=== PATIENT | female | born 1995 ===

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

== ENCOUNTER 2017-04-12 18:58 | Emergency (ER) | payer OTHER ==
[2017-04-12 18:58] VITALS: BMI 21.2
[2017-04-12 21:05] VITALS: O2SAT 100
[2017-04-12 22:03] LABS: SQUAMOUS EPITHIAL 4 /hpf (0-5); URINE BILIRUBIN NEGATIVE (NEGATIVE); URINE BLOOD NEGATIVE (NEGATIVE); URINE CLARITY Clear (Clear); URINE COLOR Yellow (YELLOW); URINE GLUCOSE (UA) NORMAL (Normal); URINE LEUKOCYTE ESTERASE NEG Leu/uL (Negative); URINE NITRATE NEGATIVE (NEGATIVE); URINE PROTEIN NEGATIVE (NEGATIVE); URINE UROBILINOGEN NORMAL mg/dL (0.2-1.0)
--- NOTE | 2017-04-13 00:33 | C.PDOC ---
History Of Present Illness 21 y/o female with c/o of mid suprapubic pain at onset of her menses on 04/09. Pt did not take any meds for the pain. She denies urinary symptoms, nausea, vomiting or diarrhea, no fever or URI sx Time Seen by Provider: 04/12/17 21:08 Chief Complaint (Nursing): Abdominal Pain History Per: Patient History/Exam Limitations: no limitations Current Symptoms Are (Timing): Still Present Severity: Mild Pain Scale Rating Of: 4 Location Of Pain/Discomfort: LLQ, Suprapubic Radiation Of Pain To:: None Associated Symptoms: denies: Fever, Nausea, Vomiting, Back Pain, Chest Pain, Constipation, Urinary Symptoms Past Medical History Vital Signs: Last Vital Signs Temp 97.7 F 04/13/17 00:43 Pulse 90 04/13/17 00:43 Resp 20 04/13/17 00:43 BP 136/78 04/13/17 00:43 Pulse Ox 100 04/13/17 00:43 - Medical History PMH: No Chronic Diseases Denies: Chronic Kidney Disease Family History: States: Unknown Family Hx - Social History Hx Alcohol Use: No Hx Substance Use: No Review Of Systems Gastrointestinal: Positive for: Abdominal Pain (suprapubic). Negative for: Nausea, Vomiting, Diarrhea Genitourinary: Positive for: Pelvic Pain. Negative for: Dysuria, Vaginal Discharge Physical Exam - Physical Exam Appears: Well, Non-toxic Skin: Normal Color Eye(s): bilateral: Normal Inspection, PERRL Oral Mucosa: Moist Throat: Normal, No Erythema Neck: Normal Chest: Symmetrical, No Tenderness Cardiovascular: Rhythm Regular Respiratory: Normal Breath Sounds, Accessory Muscle Use, No Wheezing Gastrointestinal/Abdominal: Normal Exam, Soft, Tenderness (mid suprapubic tenderness, no RLQ tenderness,), No Distention, No Guarding, No Other (mc rajan tenderness, no RUQ tenderness) Back: Normal Inspection, No CVA Tenderness Pelvic: Normal External Exam, Normal Bimanual Exam, No Vaginal Bleeding, No Vaginal Discharge, No Cervical Motion Tenderness, No Adnexal Tenderness, No Mass ED Course And Treatment O2 Sat by Pulse Oximetry: 100 Pulse Ox Interpretation: Normal Progress Note: UA and UCG wnl. Pt laying comfortably onstrrtcher in NAD, VSS. Pt reports feeling better, and will follow up with medical / bottom steep [facility] clinic in 2 days Reevaluation Time: 04:14 Reassessment Condition: Improved Disposition Counseled Patient/Family Regarding: Diagnosis, Need For Followup, Rx Given - Disposition Referrals: [facility] [Outside] Disposition: HOME/ ROUTINE Disposition Time: 00:30 Condition: STABLE Additional Instructions: Take motrin for pain Return to ER if worse (REGRESA SI MUCHO DOLOR ABDOMINAL JULIANA AN LA PARTE DERECHA A BAJO, SI VOMITO, FIEBRE O PEOR Prescriptions: Ibuprofen [Motrin] 600 mg PO Q6H #20 tab Instructions: Acute Pelvic Pain (DC) Forms: [employer] (Indonesian) Print Language: SAMMARINESE - Clinical Impression Clinical Impression: Pelvic pain
[2017-04-13 00:45] VITALS: BP 136/78; PULSE 90; RESP 20; TEMP 97.7
== END 2017-04-13 00:45 | disposition home or self-care (01) ==
LOC: C.ER 18:58
DX: R10.2 Pelvic and perineal pain (principal)

== ENCOUNTER 2018-04-17 17:47 | Emergency (ER) | payer SELFPAY ==
[2018-04-17 17:48] VITALS: BMI 21.2
[2018-04-17 17:59] VITALS: RESP 18; O2SAT 100
[2018-04-17] MEDS ORDERED: Sodium Chloride 0.9% 1,000 ML IV ONE (18:30)
[2018-04-17] MEDS ORDERED: Sodium Chloride 0.9% 1,000 ML ONE (18:46)
--- NOTE | 2018-04-17 19:27 | C.PDOC ---
History Of Present Illness 22 year old female presents to the emergency department with complaints of 3 months of epigastric abdominal pain. Patient denies nausea, vomiting, diarrhea, fever, chills, urinary symptoms, vaginal bleeding and vaginal discharge. She states that she symptoms have gotten worse, which is why she is here today. Time Seen by Provider: 04/17/18 18:13 Chief Complaint (Nursing): Abdominal Pain History Per: Patient History/Exam Limitations: no limitations Onset/Duration Of Symptoms: Other (3 months) Current Symptoms Are (Timing): Still Present Location Of Pain/Discomfort: Epigastric Quality Of Discomfort: "Pain" Associated Symptoms: denies: Fever, Chills, Nausea, Vomiting, Diarrhea, Urinary Symptoms Past Medical History Reviewed: Historical Data, Nursing Documentation, Vital Signs Vital Signs: Last Vital Signs Temp 99 F 04/17/18 17:55 Pulse 76 04/17/18 17:55 Resp 18 04/17/18 17:55 BP 119/74 04/17/18 17:55 Pulse Ox 100 04/17/18 17:55 - Medical History PMH: No Chronic Diseases Denies: Chronic Kidney Disease Surgical History: No Surg Hx Family History: States: No Known Family Hx - Social History Hx Alcohol Use: No Hx Substance Use: No - Immunization History Hx Tetanus Toxoid Vaccination: No Hx Influenza Vaccination: No Hx Pneumococcal Vaccination: No Review Of Systems Except As Marked, All Systems Reviewed And Found Negative. Gastrointestinal: Positive for: Abdominal Pain Physical Exam - Physical Exam Appears: Non-toxic, No Acute Distress Skin: Normal Color, Warm, Dry Head: Atraumatic, Normacephalic Eye(s): bilateral: Normal Inspection, PERRL, EOMI Nose: Normal Oral Mucosa: Moist Neck: Normal, Supple Chest: Symmetrical, No Tenderness Cardiovascular: Rhythm Regular, No Murmur Respiratory: Normal Breath Sounds, No Rales, No Rhonchi, No Wheezing Gastrointestinal/Abdominal: Soft, Tenderness (epigastric), No Guarding, No Rebound Neurological/Psych: Oriented x3, Normal Speech, Normal Cognition ED Course And Treatment - Laboratory Results Result Diagrams: 04/17/18 19:27 04/17/18 19:27 O2 Sat by Pulse Oximetry: 100 (RA) Pulse Ox Interpretation: Normal Medical Decision Making Medical Decision Making: Plan: CMP Lipase CBC XR Obstructive Series Pepcid 20mg IVP NaCl IV Fluids Toradol 30mg IVP Zofran 4mg IVP Urine Culture Urinalysis Assessment: Abdominal Pain 2001- patient states improvement. no more pain. will discharge home to follow up with pmd within 2 days obs. series - preliminary read as nsgp Disposition Counseled Patient/Family Regarding: Studies Performed, Diagnosis, Need For Followup, Rx Given - Disposition Referrals: [facility] [Outside] Disposition: HOME/ ROUTINE Disposition Time: 20:03 Condition: IMPROVED Additional Instructions: follow up with medical clinic within 2 days call to make an appointment take medications as prescribed return to ER if symptoms worsens or progress Prescriptions: Famotidine [Pepcid] 20 mg PO BID #20 tab Ondansetron ODT [Zofran ODT] 4 mg PO TID PRN #12 odt PRN Reason: Nausea/Vomiting Instructions: Acute Abdomen (Belly Pain), Adult (DC) Forms: Gen Discharge Inst Haitian, [employer] (Haitian) Print Language: CROATIAN - Clinical Impression Clinical Impression: Abdominal pain - Scribe Statement The provider has reviewed the documentation as recorded by the Scribe (Anthony Storm) Provider Attestation: All medical record entries made by the Scribe were at my direction and personally dictated by me. I have reviewed the chart and agree that the record accurately reflects my personal performance of the history, physical exam, medical decision making, and the department course for this patient. I have also personally directed, reviewed, and agree with the discharge instructions and disposition.
[2018-04-17 19:30] LABS: BASO % 0.5 % (0.0-2.0); EOS # 0.1 K/uL (0.0-0.7); EOS % 1.4 % (0.0-4.0); HEMOGLOBIN 13.8 g/dL (11.0-16.0); LYMPH # 3.3 K/uL (1.0-4.3); MEAN CELL VOLUME 82.9 fL (81.0-99.0); MEAN CORPUSCULAR HEMOGLOBIN 27.5 pg (27.0-31.0); MEAN CORPUSCULAR HGB CONC 33.2 g/dL (33.0-37.0); MEAN PLATELET VOLUME 9.1 fL (7.2-11.7); MONO # 0.5 K/uL (0.0-0.8); MONO % 5.7 % (0.0-10.0); NEUT # 4.1 K/uL (1.8-7.0); NEUT % 51.4 % (50.0-75.0); NRBC % 0.1 % (0.0-2.0); RBC 5.01 Mil/uL (3.80-5.20); RED CELL DISTRIBUTION WIDTH 12.6 % (11.5-14.5)
[2018-04-17 19:40] LABS: SQUAMOUS EPITHIAL < 1 /hpf (0-5); URINE BACTERIA RARE (<OCC); URINE BILIRUBIN NEGATIVE (NEGATIVE); URINE BLOOD NEGATIVE (NEGATIVE); URINE CLARITY Clear (Clear); URINE COLOR Yellow (YELLOW); URINE GLUCOSE (UA) NORMAL (Normal); URINE LEUKOCYTE ESTERASE NEG Leu/uL (Negative); URINE PROTEIN NEGATIVE (NEGATIVE); URINE UROBILINOGEN NORMAL mg/dL (0.2-1.0)
[2018-04-17 19:42] LABS: ALB/GLOB RATIO 1.3 (1.0-2.1); ALBUMIN 4.7 g/dL (3.5-5.0); ALT/SGPT 20 U/L (9-52); AST/SGOT 26 U/L (14-36); BLOOD UREA NITROGEN 8 mg/dL (7-17); CALCIUM 9.2 mg/dl (8.6-10.4); GFR NON-AFRICAN AMERICAN > 60; LIPASE 79 U/L (23-300)
[2018-04-17 20:16] VITALS: BP 115/72; PULSE 74; TEMP 98.5
--- NOTE | 2018-04-18 09:56 | RAD ---
Date of service: 04/17/2018 PROCEDURE: Radiographs of the chest and abdomen (obstructive series) HISTORY: abd pain COMPARISON: No prior. TECHNIQUE: AP radiograph of the chest, with upright and supine radiographs of the abdomen. FINDINGS: CHEST: Lungs: Clear. Cardiovascular: Normal size heart. No pulmonary vascular congestion. No aortic atherosclerotic calcification present Pleura: No pleural fluid. No pneumothorax. Other findings: Note made of multiple tiny radiopaque densities seen overlying the lower thorax and upper abdomen felt to represent clothing artifact. ABDOMEN AND PELVIS: Bowel: Unremarkable bowel gas pattern. No evidence of mechanical obstruction. Free air: None. Bones: Unremarkable. Other findings: None. IMPRESSION: Unremarkable radiographs of chest and abdomen. No evidence of mechanical bowel obstruction.
== END 2018-04-17 20:15 | disposition home or self-care (01) ==
LOC: C.ER 17:47
DX: R10.13 Epigastric pain (principal)
CPT/HCPCS: 74022; 80053; 81001; 81025; 83690; 85025; 87086; 96361; 96374; 96375; 99284; J1885; J2405; J7030

== ENCOUNTER 2018-05-09 15:37 | Emergency (ER) | payer OTHER ==
[2018-05-09 15:41] VITALS: BMI 24.2
[2018-05-09 16:08] VITALS: RESP 18
[2018-05-09 16:52] LABS: HCG,QUALITATIVE URINE NEGATIVE (NEGATIVE)
[2018-05-09 16:54] LABS: SQUAMOUS EPITHIAL 1 /hpf (0-5); URINE BILIRUBIN NEGATIVE (NEGATIVE); URINE BLOOD NEGATIVE (NEGATIVE); URINE CLARITY Clear (Clear); URINE COLOR Yellow (YELLOW); URINE GLUCOSE (UA) NORMAL (Normal); URINE LEUKOCYTE ESTERASE NEG Leu/uL (Negative); URINE PROTEIN 1+ mg/dL (NEGATIVE); URINE UROBILINOGEN NORMAL mg/dL (0.2-1.0)
--- NOTE | 2018-05-09 17:18 | C.PDOC ---
History Of Present Illness 22 y/o female presents to the ER complaining of abdominal pain and intermittent bloating which has been present for the past 3 months. Patient was evaluated for similar complaint in [place] [facility] few weeks ago. However, patient states that she did not really have a clear diagnosis and she still has the symptoms. She notes that she has pain mainly in the left side and pelvic region. Denies having fever,chills, nausea,vomiting, dysuria, and hematuria. Time Seen by Provider: 05/09/18 16:45 Chief Complaint (Nursing): Abdominal Pain History Per: Patient History/Exam Limitations: no limitations Onset/Duration Of Symptoms: Days Current Symptoms Are (Timing): Still Present Severity: Moderate Past Medical History Reviewed: Historical Data, Nursing Documentation, Vital Signs Vital Signs: Last Vital Signs Temp 98.4 F 05/09/18 15:41 Pulse 88 05/09/18 15:41 Resp 18 05/09/18 15:41 BP 145/80 05/09/18 15:41 Pulse Ox 98 05/09/18 15:41 - Medical History PMH: No Chronic Diseases Denies: Chronic Kidney Disease Other Surgeries: Hx of surgeries Family History: States: No Known Family Hx - Social History Hx Alcohol Use: No Hx Substance Use: No - Immunization History Hx Tetanus Toxoid Vaccination: No Hx Influenza Vaccination: No Hx Pneumococcal Vaccination: No Review Of Systems Except As Marked, All Systems Reviewed And Found Negative. Constitutional: Negative for: Fever, Chills Gastrointestinal: Positive for: Abdominal Pain. Negative for: Nausea, Vomiting Genitourinary: Negative for: Dysuria, Hematuria Physical Exam - Physical Exam Appears: Non-toxic, No Acute Distress Skin: Normal Color, Warm, Dry Head: Atraumatic, Normacephalic Eye(s): bilateral: Normal Inspection Nose: Normal Oral Mucosa: Moist Neck: Supple Chest: Symmetrical Cardiovascular: Rhythm Regular Respiratory: Normal Breath Sounds, No Rales, No Rhonchi, No Wheezing Gastrointestinal/Abdominal: Normal Exam, Soft, No Tenderness, No Guarding, No Rebound Neurological/Psych: Oriented x3, Normal Speech ED Course And Treatment - Laboratory Results Lab Results: Urine Color Yellow (YELLOW) 05/09/18 16:43 Urine Clarity Clear (Clear) 05/09/18 16:43 Urine pH 8.0 (5.0-8.0) 05/09/18 16:43 Ur Specific [place] 1.024 (1.003-1.030) 05/09/18 16:43 Urine Protein 1+ mg/dL (NEGATIVE) H 05/09/18 16:43 Urine Glucose (UA) Normal mg/dL (Normal) 05/09/18 16:43 Urine Ketones Negative mg/dL (NEGATIVE) 05/09/18 16:43 Urine Blood Negative (NEGATIVE) 05/09/18 16:43 Urine Nitrate Negative (NEGATIVE) 05/09/18 16:43 Urine Bilirubin Negative (NEGATIVE) 05/09/18 16:43 Urine Urobilinogen Normal mg/dL (0.2-1.0) 05/09/18 16:43 Ur Leukocyte Esterase Neg Sofie/uL (Negative) 05/09/18 16:43 Urine WBC (Auto) < 1 /hpf (0-5) 05/09/18 16:43 Ur Squamous Epith Cells 1 /hpf (0-5) 05/09/18 16:43 Urine HCG, Qual Negative (NEGATIVE) 05/09/18 16:43 Urine HCG, Qual Negative (NEGATIVE) 05/09/18 16:43 O2 Sat by Pulse Oximetry: 98 (RA) Pulse Ox Interpretation: Normal Medical Decision Making Medical Decision Making: Plan: --UA Update: Patient had X-ray Obs series on her previous ER visit which showed retained stool. Patient has been discharged with prescriptions for Miralax and Benefiber. Disposition Counseled Patient/Family Regarding: Diagnosis, Need For Followup, Rx Given - Disposition Referrals: [facility] [Outside] Disposition: HOME/ ROUTINE Disposition Time: 17:16 Condition: STABLE Prescriptions: Polyethylene Glycol 3350 [Miralax] 1 packet PO HS #30 powd.pack Wheat Dextrin [Benefiber] 1 each PO DAILY #30 powd.pack Instructions: Constipation, Adult (DC) Forms: Gen Discharge Inst Armenian, [employer] (Armenian), Work Excuse - POA Present On Arrival: None - Clinical Impression Clinical Impression: Constipation - Scribe Statement The provider has reviewed the documentation as recorded by the Boris Wilson Provider Attestation: All medical record entries made by the Scribe were at my direction and personally dictated by me. I have reviewed the chart and agree that the record accurately reflects my personal performance of the history, physical exam, medical decision making, and the department course for this patient. I have also personally directed, reviewed, and agree with the discharge instructions and disposition.
[2018-05-09 17:28] VITALS: BP 111/73; PULSE 94; TEMP 98.1
[2018-05-09 18:41] VITALS: O2SAT 98
== END 2018-05-09 17:28 | disposition home or self-care (01) ==
LOC: C.ER 15:37
DX: K59.00 Constipation, unspecified (principal)

== ENCOUNTER 2018-06-12 09:44 | Emergency (ER) | payer OTHER ==
[2018-06-12 09:53] VITALS: BMI 22.3
[2018-06-12 10:27] LABS: HCG,QUALITATIVE URINE NEGATIVE (NEGATIVE)
[2018-06-12 10:29] LABS: SQUAMOUS EPITHIAL 2 /hpf (0-5); URINE BACTERIA RARE (<OCC); URINE BILIRUBIN NEGATIVE (NEGATIVE); URINE BLOOD 1+ (NEGATIVE); URINE CLARITY Hazy (Clear); URINE COLOR Yellow (YELLOW); URINE GLUCOSE (UA) NORMAL (Normal); URINE LEUKOCYTE ESTERASE NEG Leu/uL (Negative); URINE PROTEIN NEGATIVE (NEGATIVE); URINE UROBILINOGEN NORMAL mg/dL (0.2-1.0)
--- NOTE | 2018-06-12 10:54 | RAD ---
Date of service: 06/12/2018 HISTORY: Shortness of breath COMPARISON: No prior. TECHNIQUE: Chest PA and lateral FINDINGS: LINES AND TUBES: None. LUNG AND PLEURA: The lungs are well inflated and clear. No pleural effusion or pneumothorax. HEART AND MEDIASTINUM: The heart is not enlarged. No aortic atherosclerotic calcifications present. The hilar and mediastinal contours are within normal limits. SKELETAL STRUCTURES: The bony structures are within normal limits for the patient's age. VISUALIZED UPPER ABDOMEN: Normal. OTHER FINDINGS: None. IMPRESSION: No active pulmonary disease.
--- NOTE | 2018-06-12 10:57 | C.PDOC ---
Time Seen by Provider: 06/12/18 10:06 Chief Complaint (Nursing): Dizziness/Lightheaded Past Medical History Vital Signs: Last Vital Signs Temp 99 F 06/12/18 09:53 Pulse 86 06/12/18 09:53 Resp 18 06/12/18 09:53 BP 130/78 06/12/18 09:53 Pulse Ox 100 06/12/18 09:53 - Medical History PMH: Denies: Chronic Kidney Disease Family History: States: Unknown Family Hx - Social History Hx Alcohol Use: No Hx Substance Use: No - Immunization History Hx Tetanus Toxoid Vaccination: No Hx Influenza Vaccination: No Hx Pneumococcal Vaccination: No ED Course And Treatment - Laboratory Results Lab Results: Urine Color Yellow (YELLOW) 06/12/18 10:17 Urine Clarity Hazy (Clear) 06/12/18 10:17 Urine pH 5.0 (5.0-8.0) 06/12/18 10:17 Ur Specific [place] 1.026 (1.003-1.030) 06/12/18 10:17 Urine Protein Negative mg/dL (NEGATIVE) 06/12/18 10:17 Urine Glucose (UA) Normal mg/dL (Normal) 06/12/18 10:17 Urine Ketones Negative mg/dL (NEGATIVE) 06/12/18 10:17 Urine Blood 1+ (NEGATIVE) H 06/12/18 10:17 Urine Nitrate Negative (NEGATIVE) 06/12/18 10:17 Urine Bilirubin Negative (NEGATIVE) 06/12/18 10:17 Urine Urobilinogen Normal mg/dL (0.2-1.0) 06/12/18 10:17 Ur Leukocyte Esterase Neg Sofie/uL (Negative) 06/12/18 10:17 Urine WBC (Auto) 1 /hpf (0-5) 06/12/18 10:17 Urine RBC (Auto) 8 /hpf (0-3) H 06/12/18 10:17 Ur Squamous Epith Cells 2 /hpf (0-5) 06/12/18 10:17 Urine Bacteria Rare (<OCC) 06/12/18 10:17 Urine HCG, Qual Negative (NEGATIVE) 06/12/18 10:17 Urine HCG, Qual Negative (NEGATIVE) 06/12/18 10:17 O2 Sat by Pulse Oximetry: 100 Disposition - Disposition
--- NOTE | 2018-06-12 11:01 | C.PDOC ---
History Of Present Illness 22 year old female (not on control), presents to the emergency department with complaints of shortness of breath, palpitations, and lightheadedness since this morning after drinking coffee. 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 Patient states that yesterday's episode was not as intense. Patient denies smoking, cough, recent travel, immobilization, no leg swelling/pain. Time Seen by Provider: 06/12/18 10:06 Chief Complaint (Nursing): Dizziness/Lightheaded History Per: Patient History/Exam Limitations: no limitations Onset/Duration Of Symptoms: Days (1) Current Symptoms Are (Timing): Better Associated Symptoms: Heart Racing, Light-headedness, Other (shortness of breath ). denies: Leg/Calf Pain, Ankle/Leg Swelling Recent travel outside of the [place]: No Past Medical History Reviewed: Historical Data, Nursing Documentation, Vital Signs Vital Signs: Last Vital Signs Temp 99 F 06/12/18 09:53 Pulse 86 06/12/18 09:53 Resp 18 06/12/18 09:53 BP 130/78 06/12/18 09:53 Pulse Ox 100 06/12/18 09:53 - Medical History PMH: No Chronic Diseases Denies: Chronic Kidney Disease Surgical History: No Surg Hx Family History: States: No Known Family Hx - Social History Hx Alcohol Use: No Hx Substance Use: No - Immunization History Hx Tetanus Toxoid Vaccination: No Hx Influenza Vaccination: No Hx Pneumococcal Vaccination: No Review Of Systems Constitutional: Negative for: Fever, Chills Cardiovascular: Positive for: Palpitations, Light Headedness Respiratory: Positive for: Shortness of Breath Musculoskeletal: Negative for: Leg Pain Physical Exam - Physical Exam Appears: Non-toxic, No Acute Distress Skin: Normal Color, Warm, Dry, No Rash Head: Atraumatic, Normacephalic Eye(s): bilateral: Normal Inspection, PERRL, EOMI Nose: Normal Oral Mucosa: Moist Neck: Normal, Supple Chest: Symmetrical, No Tenderness Cardiovascular: Rhythm Regular (tachycardic), No Murmur Respiratory: Normal Breath Sounds, No Rales, No Rhonchi, No Wheezing Gastrointestinal/Abdominal: Soft, No Tenderness, No Guarding, No Rebound Extremity: Normal ROM, No Pedal Edema, No Calf Tenderness, No Swelling Neurological/Psych: Oriented x3, Normal Speech, Normal Cognition, Normal Cranial Nerves, Normal Motor, Normal Sensation ED Course And Treatment - Laboratory Results Result Diagrams: 06/12/18 11:05 06/12/18 11:05 Lab Results: Urine Color Yellow (YELLOW) 06/12/18 10:17 Urine Clarity Hazy (Clear) 06/12/18 10:17 Urine pH 5.0 (5.0-8.0) 06/12/18 10:17 Ur Specific [place] 1.026 (1.003-1.030) 06/12/18 10:17 Urine Protein Negative mg/dL (NEGATIVE) 06/12/18 10:17 Urine Glucose (UA) Normal mg/dL (Normal) 06/12/18 10:17 Urine Ketones Negative mg/dL (NEGATIVE) 06/12/18 10:17 Urine Blood 1+ (NEGATIVE) H 06/12/18 10:17 Urine Nitrate Negative (NEGATIVE) 06/12/18 10:17 Urine Bilirubin Negative (NEGATIVE) 06/12/18 10:17 Urine Urobilinogen Normal mg/dL (0.2-1.0) 06/12/18 10:17 Ur Leukocyte Esterase Neg Sofie/uL (Negative) 06/12/18 10:17 Urine WBC (Auto) 1 /hpf (0-5) 06/12/18 10:17 Urine RBC (Auto) 8 /hpf (0-3) H 06/12/18 10:17 Ur Squamous Epith Cells 2 /hpf (0-5) 06/12/18 10:17 Urine Bacteria Rare (<OCC) 06/12/18 10:17 Urine HCG, Qual Negative (NEGATIVE) 06/12/18 10:17 Urine HCG, Qual Negative (NEGATIVE) 06/12/18 10:17 O2 Sat by Pulse Oximetry: 100 (RA) Pulse Ox Interpretation: Normal - Radiology CXR: Viewed By Me, Read By Radiologist CXR Interpretation: Yes: No Acute Disease Medical Decision Making Medical Decision Making: Plan: EKG CMP CBC D-Dimer CXR HCG Qualitative Urine Urinalysis 1329 pt not , normal cxr, sinus tach on ekg. hr now in 80s. d-dimer ne g. will d/c home with outpatient cardiology and pmd f/u Disposition Counseled Patient/Family Regarding: Studies Performed, Diagnosis, Need For Followup, Rx Given - Disposition Referrals: [facility] [Outside] [facility] [Outside] Disposition: HOME/ ROUTINE Disposition Time: 13:34 Condition: IMPROVED Forms: [employer] (Nepalese), Gen Discharge Inst Portuguese, [employer] (Portuguese) - Clinical Impression Clinical Impression: Palpitations - PA / FIGHT MANAGER / Resident Statement MD/DO has reviewed & agrees with the documentation as recorded. - Scribe Statement The provider has reviewed the documentation as recorded by the Scribe (Anthony tSorm) All medical record entries made by the Scribe were at my direction and personally dictated by me. I have reviewed the chart and agree that the record accurately reflects my personal performance of the history, physical exam, medical decision making, and the department course for this patient. I have also personally directed, reviewed, and agree with the discharge instructions and disposition.
[2018-06-12 11:12] LABS: BASO % 0.6 % (0.0-2.0); EOS % 0.7 % (0.0-4.0); HEMOGLOBIN 13.5 g/dL (11.0-16.0); LYMPH # 1.8 K/uL (1.0-4.3); LYMPH % 33.3 % (20.0-40.0); MEAN CELL VOLUME 82.4 fL (81.0-99.0); MEAN CORPUSCULAR HEMOGLOBIN 28.3 pg (27.0-31.0); MEAN CORPUSCULAR HGB CONC 34.4 g/dL (33.0-37.0); MEAN PLATELET VOLUME 9.3 fL (7.2-11.7); MONO # 0.3 K/uL (0.0-0.8); MONO % 5.5 % (0.0-10.0); NEUT # 3.2 K/uL (1.8-7.0); NEUT % 59.9 % (50.0-75.0); NRBC % 0.1 % (0.0-2.0); RBC 4.77 Mil/uL (3.80-5.20); RED CELL DISTRIBUTION WIDTH 12.7 % (11.5-14.5); WHITE BLOOD COUNT 5.4 K/uL (4.8-10.8)
[2018-06-12 11:24] LABS: ALB/GLOB RATIO 1.6 (1.0-2.1); ALBUMIN 4.5 g/dL (3.5-5.0); ALT/SGPT 16 U/L (9-52); AST/SGOT 23 U/L (14-36); BLOOD UREA NITROGEN 8 mg/dL (7-17); CALCIUM 9.1 mg/dl (8.6-10.4); GFR NON-AFRICAN AMERICAN > 60
[2018-06-12] MEDS ORDERED: Sodium Chloride 0.9% 1,000 ML IV ONE (11:48)
[2018-06-12 13:31] VITALS: RESP 20
[2018-06-12 13:43] VITALS: BP 105/64; PULSE 79; TEMP 98.4; O2SAT 99
--- NOTE | 2018-06-13 10:55 | CARD ---
APPROVED REPORT Date of service: 06/12/2018 EKG Measurement Heart [id number] <Conclusion> Normal sinus rhythm with sinus arrhythmia Normal ECG
== END 2018-06-12 13:54 | disposition home or self-care (01) ==
LOC: C.ER 09:44
DX: R00.2 Palpitations (principal)
CPT/HCPCS: 71046; 80053; 81001; 82948; 84703; 85025; 85378; 93005; 96360; 99285; J7030